=== PATIENT | female | born 1945 | race American Indian/Alaskan Native ===

== ENCOUNTER 2017-03-16 08:04 | Outpatient (CLI) | payer MEDICARE ==
--- NOTE | 2017-03-16 10:09 | Mammography Report ---
Diagnostic right mammogram and sonogram: History: Right breast pain. Findings: Predominance adipose tissue. Benign calcification. New 2 mm circumscribed density mid right breast seen only on CC view and also on spot compression view. Sonographic examination reveals no cystic or solid mass. Impression: Probably benign density right breast. Six-month followup with right mammogram recommended. BI-RADS CATEGORY: 3 = Probably benign ACR BI-RADS MAMMOGRAPHIC CODES: 0 = Needs additional imaging evaluation; 1 = Negative; 2 = Benign; 3 = Probably benign; 4 = Suspicious; 5 = Malignant; 6 = Known biopsy-proven malignancy COMMENT: 1. Dense breast tissue, i.e., adenosis, fibrocystic changes, etc., may obscure an underlying neoplasm. 2. Approximately 10% of cancers are not detected with mammography. 3. A negative mammography report should not delay biopsy if a clinically suspicious mass is present. COMMENT: Patient follow-up letters are generated in [employer].
== END 2017-03-16 08:05 | disposition home or self-care (01) ==
LOC: MAMMO 08:04
PROVIDERS: ATTEND General Practice
DX: N64.4 Mastodynia (principal)
CPT/HCPCS: 76641; G0206

== ENCOUNTER 2017-09-17 09:07 | Outpatient (CLI) | payer MEDICARE ==
--- NOTE | 2017-09-17 09:47 | Mammography Report ---
Bilateral mammogram: Routine views demonstrate a generally fatty replaced breast pattern bilaterally. There is no focal mass, architectural distortion, or suspicious calcification. The findings are unchanged compared to prior exams dating back to 2015. CAD used. Impression: Stable breast pattern. No suspicious findings. Recommendation: Annual mammogram followup. BI-RADS CATEGORY: 1 = Negative ACR BI-RADS MAMMOGRAPHIC CODES: 0 = Needs additional imaging evaluation; 1 = Negative; 2 = Benign; 3 = Probably benign; 4 = Suspicious; 5 = Malignant; 6 = Known biopsy-proven malignancy COMMENT: 1. Dense breast tissue, i.e., adenosis, fibrocystic changes, etc., may obscure an underlying neoplasm. 2. Approximately 10% of cancers are not detected with mammography. 3. A negative mammography report should not delay biopsy if a clinically suspicious mass is present.
== END 2017-09-17 09:08 | disposition home or self-care (01) ==
LOC: SPVWC 09:07
PROVIDERS: ATTEND General Practice
DX: N64.4 Mastodynia (principal)
CPT/HCPCS: 77066; G0204; G0206-RT

== ENCOUNTER 2018-06-25 17:26 | Outpatient (CLI) | payer MEDICARE ==
--- NOTE | 2018-06-25 19:36 | Ultrasound Report ---
FINAL REPORT EXAM: US THRYROID SCAN HISTORY: enlarge thyroid goiter TECHNIQUE: Grayscale and color-flow imaging of the thyroid gland was performed. Comparison: None FINDINGS: The right lobe of the thyroid demonstrates homogeneous echogenicity and measures 3.6 centimeters x 1.7 centimeters x 1.3 centimeters. There is no demonstration of nodule. The left lobe of the thyroid demonstrates homogeneous echogenicity and measures 2.9 centimeters x 1.3 centimeters x 1.4 centimeters. There is no demonstration of nodule. The isthmus measures 0.4 centimeters. There is no demonstration of nodule. IMPRESSION: 1. Normal study.
== END 2018-06-25 17:27 | disposition home or self-care (01) ==
LOC: US 17:26
PROVIDERS: ATTEND General Practice
DX: E04.9 Nontoxic goiter, unspecified (principal)
CPT/HCPCS: 76536

== ENCOUNTER 2020-11-03 10:24 | Outpatient (CLI) | payer MEDICARE ==
--- NOTE | 2020-11-03 14:27 | Mammography Report ---
DIGITAL SCREENING MAMMOGRAM WITH CAD, 11/03/2020 CLINICAL INFORMATION / INDICATION: Routine screening mammography. TECHNIQUE: Digital bilateral 2D mammography was obtained in the craniocaudal and mediolateral obliqu e projections. This examination was interpreted with the benefit of Computer-Aided Detection analysis . COMPARISON: 10/16/2018 FINDINGS: Breast Density: The breasts are almost entirely fatty. No dominant mass, suspicious calcifications, or architectural distortion in either breast. No interval change. IMPRESSION: No mammographic evidence of malignancy. Follow up recommendation: Routine yearly BI-RADS Category 1: Negative. A "normal" or negative report should not discourage follow up or biopsy of a clinically significant f inding. A written summary of these findings will be mailed to the patient. The patient will be entered into a mammography reporting system which will generate a reminder letter for the patient's next appointmen t at the appropriate interval. The [employer] recommends yearly mammograms starting at age 40 and continuing as l kory as a woman is in good health. Breast MRI is recommended for women with an approximate 20-25% or greater lifetime risk of breast cancer, including women with a strong family history of breast or ova melinda cancer or who have been treated for Hodgkin's disease. Signer Name: Katie Dennis MD Signed: 11/03/2020 2:23 PM Workstation Name: [id number]
== END 2020-11-03 10:25 | disposition home or self-care (01) ==
LOC: SPVWC 10:24
PROVIDERS: ATTEND Internal Medicine
DX: Z12.31 Encounter for screening mammogram for malignant neoplasm of breast (principal)
CPT/HCPCS: 77067

== ENCOUNTER 2021-11-07 10:56 | Outpatient (CLI) | payer MEDICARE ==
--- NOTE | 2021-11-07 11:43 | Mammography Report ---
DIGITAL SCREENING MAMMOGRAM WITH CAD, 11/07/2021 CLINICAL INFORMATION / INDICATION: Routine screening mammography. SCREENING MAMMO Z12.31 TECHNIQUE: Digital bilateral 2D mammography was obtained in the craniocaudal and mediolateral obliqu e projections. This examination was interpreted with the benefit of Computer-Aided Detection analysis . COMPARISON: 07/13/2014 through 11/03/2020. FINDINGS: Breast Density: The breasts are almost entirely fatty. No dominant mass, suspicious calcifications, or architectural distortion in either breast. There are mild benign breast arterial calcifications bilaterally. Localized calcifications related to fat necrosis in the right superior breast are stable. IMPRESSION: No mammographic evidence of malignancy. Follow up recommendation: Routine yearly BI-RADS Category 2: BENIGN. A "normal" or negative report should not discourage follow up or biopsy of a clinically significant f inding. A written summary of these findings will be mailed to the patient. The patient will be entered into a mammography reporting system which will generate a reminder letter for the patient's next appointmen t at the appropriate interval. The [employer] recommends yearly mammograms starting at age 40 and continuing as l kory as a woman is in good health. Breast MRI is recommended for women with an approximate 20-25% or greater lifetime risk of breast cancer, including women with a strong family history of breast or ova melinda cancer or who have been treated for Hodgkin's disease. Signer Name: Jose Reagan MD Signed: 11/07/2021 11:38 AM Workstation Name: [id number]
== END 2021-11-07 10:57 | disposition home or self-care (01) ==
LOC: SPVWC 10:56
PROVIDERS: ATTEND Internal Medicine
DX: Z12.31 Encounter for screening mammogram for malignant neoplasm of breast (principal); N64.89 Other specified disorders of breast
CPT/HCPCS: 77067